=== PATIENT | male | born 2000 | race Caucasian/White ===

== ENCOUNTER 2020-01-25 02:14 | Emergency (ER) | payer BC, SELFPAY ==
[2020-01-25 02:15] VITALS: BP 176/101; PULSE 118; RESP 16; TEMP 36.9; O2SAT 97; BMI 45.6
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
--- NOTE | 2020-01-25 02:42 | ECG_ITS ---
APPROVED REPORT Exam: Resting ECG HR:115 bpm ECG Measurements Heart Rate 115 AXES NH 144 P 31 QRSd 78 QRS 45 QT 308 T 57 QTc 426 Conclusion Sinus tachycardia Otherwise normal ECG Electronically signed by : Michael Mcclure, 01/27/2020 20:33:45
[2020-01-25 02:45] VITALS: BP 129/76; PULSE 83; RESP 16; O2SAT 98
[2020-01-25 02:56] LABS: Basophils # 0.1 K/mm3 (0-0.2); Basophils % 0.3 % (0.1-2.0); Eosinophils # 0.1 K/mm3 (0.0-0.4); Eosinophils % 0.7 % (0.1-12.0); Hematocrit 49.6 % (42.0-52.0); Hemoglobin 16.3 g/dL (14.1-18.0); Lymphocytes # 3.6 K/mm3 (0.7-4.5); Lymphocytes % 19.1 % (10-50); Mean Corpuscular HGB Conc 32.9 g/dL (31.8-35.4); Mean Corpuscular Hemoglobin 28.6 pg (27.0-31.2); Mean Corpuscular Volume 86.9 fl (80-94); Mean Platelet Volume 7.9 fl (7.4-10.4); Monocytes % 5.5 % (1.7-9.3); Neutrophils # 14.2 K/mm3 (1.8-7.8); Neutrophils % 74.4 % (37.0-80.0); Platelet Count 351 K/mm3 (142-424)
[2020-01-25 03:06] LABS: Alanine Aminotransferase 51 U/L (12-78); Albumin Level 4.9 g/dl (3.5-5.0); Albumin/Globulin Ratio 1.6 (1.1-1.8); Alkaline Phosphatase 106 U/L (38-126); Anion Gap 15.9 mEq/L (5-15); Aspartate Amino Transferase 33 U/L (17-59); Bilirubin,Total 0.8 mg/dl (0.2-1.3); Blood Urea Nitrogen 13 mg/dl (9-20); Calcium 9.9 mg/dl (8.4-10.2); Carbon Dioxide 25 mmol/L (22.0-30.0); Chloride 103 mmol/L (98-107); Creatinine Clearance Estimated 95 mL/min (50-200); Estimated Glomerular Filt Rate 77 ml/min (>60); GFR (African American) 93 ML/MIN (>60); Globulin 3.1 g/dL (1.3-3.2); Glucose 125 mg/dl (74-100); Potassium 3.9 mmoL/L (3.5-5.1); Sodium 140 mmol/L (136-145)
--- NOTE | 2020-01-25 03:12 | PC.NURSE ---
called to check status of labs, spoke with jessa. was told she was out of the department in OB and the labs were running and she didn't know if they were finished or not. informed her that these were cardiac labs. continuing to wait on lab results.
[2020-01-25 03:15] VITALS: BP 138/86; PULSE 91; RESP 16; O2SAT 97
[2020-01-25 03:19] LABS: Troponin I < 0.01 ng/ml (0.00-0.034)
[2020-01-25 03:20] LABS: MANUAL DIFFERENTIAL MANUAL DIFFERENTIAL (MANUAL DIFF)
[2020-01-25 03:37] LABS: Thyroid Stimulating Hormone 2.91 uIU/mL (0.465-4.68)
[2020-01-25 03:45] LABS: Free T4 (Free Thyroxine) 1.35 ng/dl (0.78-2.19)
--- NOTE | 2020-01-25 03:50 | [facility].EDARPALP ---
ED Disposition Clinical Impression: Palpitations, Anxiety Obesity Qualifiers: Obesity type: due to excess calories Obesity classification: adult class 3 (BMI >= 40) Serious obesity comorbidity presence: with serious comorbidity Body mass index: BMI 45.0-49.9 Qualified Code(s): E66.01 - Morbid (severe) obesity due to excess calories; Z68.42 - Body mass index [BMI] 45.0-49.9, adult Disposition: Home, Self-Care Condition on Discharge: Good Instructions: DI for Palpitations Referrals: Regi Burr MD [Primary Care Provider] - - Critical Care Critical Care Time: No Attestation: On 01/25/20, the high probability of a clinically significant, sudden or life threatening deterioration of the following system(s) required my full and direct attention, intervention and personal management. The time I documented below is in addition to time spent performing reported procedures but includes the following listed in this critical care notation. Medical Decision Making - Medical Records Medical records reviewed: Yes: I reviewed the patient's medical records. - Richard Inquiry Pt receiving controlled substance: No Vital Signs: 01/25/20 02:15 01/25/20 02:45 Temperature 98.5 F Temperature Source Oral Pulse Rate [Left Radial] 118 H 83 Respiratory Rate 16 16 Blood Pressure [Right Arm] 176/101 H 129/76 Blood Pressure Mean [Right Arm] 126 93 Blood Pressure Source [Right Arm] Automatic Cuff Blood Pressure Position [Right Arm] Sitting 02 Sat by Pulse Oximetry 97 98 Oxygen Delivery Method Room Air Room Air - Lab Data Lab results reviewed: Yes: I reviewed the patient's lab results. Lab Results 01/25/20 02:50: WBC 19.0 H, RBC 5.70, Hgb 16.3, Hct 49.6, MCV 86.9, MCH 28.6, MCHC 32.9, RDW 14.0, Plt Count 351, MPV 7.9, Neut % (Auto) 74.4, Lymph % (Auto) 19.1, Haskell % (Auto) 5.5, Eos % (Auto) 0.7, Baso % (Auto) 0.3, Neut # (Auto) 14.2 H, Lymph # (Auto) 3.6, Haskell # (Auto) 1.0, Eos # (Auto) 0.1, Baso # (Auto) 0.1 01/25/20 02:50: Sodium 140, Potassium 3.9, Chloride 103, Carbon Dioxide 25, Anion Gap 15.9 H, BUN 13, Creatinine 1.20, Estimated Creat Clear 95, Estimated GFR 77, Est GFR ( Amer) 93, Glucose 125 H, Calcium 9.9, Total Bilirubin 0.8, AST 33, ALT 51, Alkaline Phosphatase 106, Troponin I < 0.01, Total Protein 8.0, Albumin 4.9, Globulin 3.1, Albumin/Globulin Ratio 1.6, TSH 2.91 Result diagrams: 01/25/20 02:50 01/25/20 02:50 Orders (Tests/Meds): ED MEDICATIONS Generic Name Dose Route Start Last Admin Trade Name Freq PRN Reason Stop Dose Admin Sodium Chloride 1,000 mls @ 999 mls/hr 01/25/20 02:45 01/25/20 02:49 Sod Chlor 0.9% 1000ml Bag IV 01/25/20 03:45 999 mls/hr .Q1H1M JALEN Administration ORDERS Category Date Time Status XR chest 2V Stat Exams 01/25/20 02:35 Taken Complete Blood Count Auto Diff Stat Lab 01/25/20 02:50 Results Free T4 (Free Thyroxine) Stat Lab 01/25/20 02:50 Received Troponin I Q3H Lab 01/25/20 05:45 Ordered Troponin I Q3H Lab 01/25/20 08:45 Ordered - ECG Data Tracing #1 Arrhythmias present: sinus tach Ischemic changes: non-specific ST-T wave changes - BETTIE Score for Non-Stemi Age of Patient: <30 years old Heart Rate: 110-149 bpm Systolic Blood Pressure: 160-199 mmHg Serum Creatinine: 1.20-1.59 mg/dl CHF Killip Class: I-No CHF Other Risk Factors: None Non-Stemi Risk Score: 44 Arrhythmia/Palpitations HPI - General Chief Complaint: Arrhythmia/Palpitations Stated Complaint: possible anxiety attack, fast heart rate Time Seen by Provider: 01/25/20 03:00 Mode of Arrival: Ambulatory Source of Information: Patient, Parent(s), Medical Record Limitations: No Limitations - History of Present Illness HPI narrative: acute anxiety with assoc palpitation w/o syncope - has had in past MD complaint: palpitations Onset (ago): hour(s) Duration: now resolved Severity: similar to previous episodes - Related Data Home Medications Medication
[2020-01-25 03:55] VITALS: BP 156/92; PULSE 98; RESP 16; TEMP 36.6; O2SAT 97
[2020-01-25 04:12] LABS: Eosinophils % 1 % (0-3); Lymphocytes % 19 % (10-50); Monocytes % 1 % (2-9); Neutrophils % 79 % (42-76); Platelet Estimate Normal; Stomatocytes 1+; Total Cells Counted 100
== END 2020-01-25 04:05 | disposition home or self-care (01) ==
PROVIDERS: Emergency Provider Emergency Medicine; PCP Family Medicine
DX: R00.2 Palpitations (principal); F41.9 Anxiety disorder, unspecified; E66.01 Morbid (severe) obesity due to excess calories; Z68.42 Body mass index [BMI] 45.0-49.9, adult
CPT/HCPCS: 71046; 80053; 84439; 84443; 84484; 85007; 85025; 93005; 96365; 99283

== ENCOUNTER → 2020-01-26 11:32 | Outpatient (CLI) | payer BC, SELFPAY | PROVIDERS: PCP Family Medicine; Visit Provider Family Medicine | DX: R00.0 Tachycardia, unspecified (principal) | CPT/HCPCS: 93225; 93226 ==

== ENCOUNTER → 2020-02-01 08:37 | Outpatient (CLI) | payer BC, SELFPAY ==
--- NOTE | 2020-02-01 | CA_ITS ---
APPROVED REPORT EXAM: Comprehensive 2D, Doppler, and color-flow Echocardiogram Car Parker: Gin Be, RT(R) Ht: 5 ft 8 in Wt: 310lbs BSA: 2.46 BP: 129/76 mmHg Indications: Tachycardia, murmur, palpitations, SOB, RAYMOND, obesity, family history of HD 2D Dimensions LVOT 1.81 cm (M/F) 1.5-2.5 M-Mode Dimensions RVDd 2.80 cm (0.9-2.6) LA Diam 3.02 cm (1.9-4.0) LVDd 4.93 cm (3.5-5.7) Ao Diam 2.22 cm (2.0-3.7) LVDs 3.87 cm (3.5-5.7) IVSd 1.15 cm (0.6-1.1) PWd 0.76 cm (0.6-1.1) EF (Teich) 43.40% FS 21.50% EDV (Teich) 114.40 mL ESV (Teich) 64.70 mL LV Diastology E Decel Time 150.00 (160-240 msec) E/A Ratio 1.7 MED E' 12.30 (< 7 cm/sec) E'/MED E' Ratio 7.61 (>14) LAT E' 13.20 (<10 cm/sec) E/LAT E' Ratio 7.09 (>14) Mitral Valve MV E Max Maynor. 94.00 (40-130 cm/s) MV A Velocity 54.00 (40-130 cm/s) E/A Ratio 1.74 MV Decel. Time 150.00 (160-240 ms) MV PHT 44.00 ms Left Ventricle Left atrium is normal size, left ventricle is normal size, there is no concentric left ventricular hypertrophy, visually estimated ejection fraction 55% with no regional wall motion abnormality. Diastolic parameters are within normal range. Right Ventricle Right atrium and right ventricular normal size and contractility. Aortic Valve Aortic valve is grossly normal, there is no aortic stenosis or aortic insufficiency. Mitral Valve Mitral valve is grossly normal, there is trace mitral regurgitation. Tricuspid Valve Tricuspid valve grossly normal, there is trace tricuspid regurgitation. Pulmonic Valve Pulmonic valve is poorly visualized. Great Vessels Aortic root is normal size. Pericardium No significant pericardial effusion noted. Conclusion 1. Normal left ventricular size, preserved left ventricular systolic function, visually estimated ejection fraction 55% with no regional wall motion abnormality, diastolic parameters are within normal range. 2. Trace mitral and tricuspid regurgitation. 3. Normal transthoracic echocardiogram. Electronically signed by : Missael Barrios, 02/01/2020 12:55:26
== END ==
PROVIDERS: PCP Family Medicine; Visit Provider Family Medicine
DX: R00.2 Palpitations (principal)
CPT/HCPCS: 93306